=== PATIENT | female | born 1985 | race Caucasian/White ===

== ENCOUNTER 2019-01-16 22:57 | Emergency (ER) | payer OTHER ==
[2019-01-16] MEDS ORDERED: SOLU-Medrol IV ONE (23:13)
[2019-01-16] MEDS ORDERED: PEPCID IV ONE (23:13)
[2019-01-16 23:38] LABS: Basophils % (Auto) 0.4 % (0.0-1.8); Eosinophils # (Auto) 0.1 K/mm3 (0.0-0.4); Eosinophils % (Auto) 1.8 % (0.0-4.3); Hematocrit 39.4 % (30.3-42.9); Hemoglobin 13.9 gm/dl (10.1-14.3); Lymphocytes # (Auto) 1.7 K/mm3 (1.2-5.4); Mean Corpuscular HGB Conc 35 % (30-34); Mean Corpuscular Volume 91 fl (79-97); Monocytes # (Auto) 0.4 K/mm3 (0.0-0.8); Monocytes % (Auto) 6.1 % (0.0-7.3); Platelet Count 211 K/mm3 (140-440); Red Blood Count 4.32 M/mm3 (3.65-5.03); Red Cell Distribution Width 13.1 % (13.2-15.2)
[2019-01-16 23:47] LABS: BUN/Creatinine Ratio 26; Blood Urea Nitrogen 18 mg/dL (7-17); Calcium 8.5 mg/dL (8.4-10.2); Hemolysis Index 4
[2019-01-17] MEDS ORDERED: LIDOCAINE VISCOUS 2% PO ONE (00:18)
[2019-01-17 01:10] VITALS: BP 125/91
--- NOTE | 2019-01-17 01:19 | Emergency Department Report ---
ED Fever HPI - General Chief Complaint: Allergic Reaction Stated Complaint: ALLERGIC REACTION Time Seen by Provider: 01/16/19 23:12 - History of Present Illness Initial Comments: Patient is a 33-year-old femalepast medical history who presents with reaction. Patient states that she came in contact with avocado and then she started breaking up and I asked him feeling some pain in her throat. Patient's pain is mild swallowing makes it worse nothing makes it better. Patient states that she's had similar reactions in the past to avocado. She took 2 Benadryl about 30 minutes prior to coming into the emergency department. ED Review of Systems ROS: Stated complaint: ALLERGIC REACTION Other details as noted in HPI Constitutional: denies: chills, fever Eyes: denies: eye pain, eye discharge, vision change ENT: denies: ear pain, throat pain Respiratory: denies: cough, shortness of breath, wheezing Cardiovascular: denies: chest pain, palpitations Endocrine: no symptoms reported Gastrointestinal: denies: abdominal pain, nausea, diarrhea Genitourinary: denies: urgency, dysuria, discharge Musculoskeletal: denies: back pain, joint swelling, arthralgia Skin: rash. denies: lesions Neurological: denies: headache, weakness, paresthesias Psychiatric: denies: anxiety, depression Hematological/Lymphatic: denies: easy bleeding, easy bruising ED Past Medical Hx - Past Medical History Previous Medical History?: No - Surgical History Past Surgical History?: Yes Hx Breast Surgery: Yes (2 breast augmentations) Additional Surgical History: lymph node removed from left abdominal area 5 years ago - Social History Smoking Status: Current Every Day Smoker Substance Use Type: Alcohol - Medications Home Medications: Home Medications Medication Instructions Recorded Confirmed Last Taken Type Famotidine [Pepcid] 20 mg PO BID #20 tablet 01/17/19 Unknown Rx diphenhydrAMINE [Benadryl CAP] 25 mg PO Q6HR PRN #30 capsule 01/17/19 Unknown Rx predniSONE [Deltasone] 20 mg PO BID #10 tab 01/17/19 Unknown Rx ED Physical Exam - General Limitations: No Limitations General appearance: alert, in no apparent distress - Head Head exam: Present: atraumatic, normocephalic - Eye Eye exam: Present: normal appearance - ENT ENT exam: Present: mucous membranes moist - Neck Neck exam: Present: normal inspection - Respiratory Respiratory exam: Present: normal lung sounds bilaterally. Absent: respiratory distress - Cardiovascular Cardiovascular Exam: Present: regular rate, normal rhythm. Absent: systolic murmur, diastolic murmur, rubs, gallop - GI/Abdominal GI/Abdominal exam: Present: soft, normal bowel sounds - Extremities Exam Extremities exam: Present: normal inspection - Back Exam Back exam: Present: normal inspection - Neurological Exam Neurological exam: Present: alert, oriented X3 - Psychiatric Psychiatric exam: Present: normal affect, normal mood - Skin Skin exam: Present: warm, dry, intact, normal color. Absent: rash ED Course Vital Signs 01/16/19 01/16/19 01/16/19 23:02 23:12 23:16 Temperature 97.8 F 98 F Pulse Rate 83 79 82 Respiratory 18 18 19 Rate Blood Pressure 125/91 137/69 Blood Pressure 137/69 [Left] O2 Sat by Pulse 98 98 99 Oximetry 01/16/19 01/17/19 01/17/19 23:46 00:00 00:16 Temperature Pulse Rate 87 82 79 Respiratory 16 13 Rate Blood Pressure 115/85 115/85 130/85 Blood Pressure [Left] O2 Sat by Pulse 97 99 99 Oximetry 01/17/19 01/17/19 00:30 01:00 Temperature Pulse Rate 85 79 Respiratory 14 24 Rate Blood Pressure 130/85 125/91 Blood Pressure [Left] O2 Sat by Pulse 99 Oximetry ED Medical Decision Making - Lab Data Result diagrams: 01/16/19 23:21 01/16/19 23:21 Lab Results 01/16/19 01/16/19 Range/Units 23:21 23:21 WBC 7.1 (4.5-11.0) K/mm3 RBC 4.32 (3.65-5.03) M/mm3 Hgb 13.9 (10.1-14.3) gm/dl Hct 39.4 (30.3-42.9) % MCV 91 (79-97) fl MCH 32 (28-32) pg MCHC 35 H (30-34) % RDW 13.1 L (13.2-15.2) % Plt Count 211 (140-440) K/mm3 Lymph % (Auto) 24.0 (13.4-35.0) % Garrard % (Auto) 6.1 (0.0-7.3) % Eos % (Auto) 1.8 (0.0-4.3) % Baso % (Auto) 0.4 (0.0-1.8) % Lymph # 1.7 (1.2-5.4) K/mm3 Garrard # 0.4 (0.0-0.8) K/mm3 Eos # 0.1 (0.0-0.4) K/mm3 Baso # 0.0 (0.0-0.1) K/mm3 Seg Neutrophils % 67.7 (40.0-70.0) % Seg Neutrophils # 4.8 (1.8-7.7) K/mm3 Sodium 142 (137-145) mmol/L Potassium 4.1 (3.6-5.0) mmol/L Chloride 107.8 H (98-107) mmol/L Carbon Dioxide 24 (22-30) mmol/L Anion Gap 14 mmol/L BUN 18 H (7-17) mg/dL Creatinine 0.7 (0.7-1.2) mg/dL Estimated GFR > 60 ml/min BUN/Creatinine Ratio 26 % Glucose 90 (65-100) mg/dL Calcium 8.5 (8.4-10.2) mg/dL - EKG Data -: EKG Interpreted by Me - Medical Decision Making Cdx: Allergic reaction secondary to avacado ddx: Anaphalctoid reaction, electrolyte abnormality I will get cbc, bmp, IV bendaryl , IV pepcid and IV steroids Patient is feeling better I will discharge patient home. Critical care attestation.: If time is entered above; I have spent that time in minutes in the direct care of this critically ill patient, excluding procedure time. ED Disposition Clinical Impression: Throat pain Allergic reaction Qualifiers: Encounter type: initial encounter Qualified Code(s): T78.40XA - Allergy, unspecified, initial encounter Disposition: DC- TO HOME OR SELFCARE Is pt being admited?: No Does the pt Need Aspirin: No Condition: Stable Instructions: Anaphylaxis (ED) Prescriptions: diphenhydrAMINE [Benadryl CAP] 25 mg PO Q6HR PRN #30 capsule PRN Reason: Allergy Symptoms Famotidine [Pepcid] 20 mg PO BID #20 tablet predniSONE [Deltasone] 20 mg PO BID #10 tab Referrals: BARBARA CLEVELAND MD [Primary Care Provider] - 3-5 Days
== END 2019-01-17 01:44 | disposition home or self-care (01) ==
LOC: ED 22:57
DX: T78.40XA Allergy, unspecified, initial encounter (principal); R07.0 Pain in throat; F17.200 Nicotine dependence, unspecified, uncomplicated; Z91.018 Allergy to other foods
CPT/HCPCS: 36415; 80048; 85025; 96374; 96375; 99284; J2930

== ENCOUNTER 2019-01-19 22:10 | Emergency (ER) | payer OTHER ==
--- NOTE | 2019-01-19 23:41 | Emergency Department Report ---
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 Pt states she was evaluated in the ED on 01/17/19 for an allergic reaction after she came into contact with avocado oil. The patient was treated in the ED and discharged home. She states she would like an epi pen in case she comes into contact with avocado oil again. She currently denies any rash, itching, SOB, cough, throat pain, throat swelling, or any symptoms at all. Severity scale (0 -10): 0 - Related Data Previous Rx's Medication Instructions Recorded Last Taken Type Famotidine [Pepcid] 20 mg PO BID #20 tablet 01/17/19 Unknown Rx diphenhydrAMINE [Benadryl CAP] 25 mg PO Q6HR PRN #30 capsule 01/17/19 Unknown Rx predniSONE [Deltasone] 20 mg PO BID #10 tab 01/17/19 Unknown Rx EPINEPHrine [Epipen] 0.3 mg IJ ONCE PRN #1 auto.injct 01/19/19 Unknown Rx Allergies Allergy/AdvReac Type Severity Reaction Status Date / Time avacodo Allergy Swelling Uncoded 01/16/19 23:01 ED Review of Systems ROS: Stated complaint: NEEDS EPIPEN RX Other details as noted in HPI Comment: All other systems reviewed and negative ED Past Medical Hx - Past Medical History Previous Medical History?: No - Surgical History Hx Breast Surgery: Yes (2 breast augmentations) Additional Surgical History: lymph node removed from left abdominal area 5 years ago - Social History Smoking Status: Never Smoker Substance Use Type: None - Medications Home Medications: Home Medications Medication Instructions Recorded Confirmed Last Taken Type Famotidine [Pepcid] 20 mg PO BID #20 tablet 01/17/19 Unknown Rx diphenhydrAMINE [Benadryl CAP] 25 mg PO Q6HR PRN #30 capsule 01/17/19 Unknown Rx predniSONE [Deltasone] 20 mg PO BID #10 tab 01/17/19 Unknown Rx EPINEPHrine [Epipen] 0.3 mg IJ ONCE PRN #1 auto.injct 01/19/19 Unknown Rx ED Physical Exam - General Limitations: No Limitations General appearance: alert, in no apparent distress - Head Head exam: Present: atraumatic, normocephalic - Eye Eye exam: Present: normal appearance - ENT ENT exam: Present: mucous membranes moist - Respiratory Respiratory exam: Absent: respiratory distress - Cardiovascular Cardiovascular Exam: Present: regular rate - Neurological Exam Neurological exam: Present: alert, oriented X3 - Skin Skin exam: Present: warm, dry, intact. Absent: rash, erythema, urticaria ED Course Vital Signs 01/19/19 22:32 Temperature 98 F Pulse Rate 89 Respiratory 18 Rate Blood Pressure 134/91 O2 Sat by Pulse 98 Oximetry ED Medical Decision Making - Medical Decision Making pt with hx of allergy to avocado oil. She comes in to ED for prescription for EPI pen. Pt would like to have an EPI pen in case of further interactions that may occur with the avocado oil. Discussed risk and benefits of epi pen. Explained to pt if she uses the EPI pen then to be immediately seen in an emergency department. Advised to return to ED for any further reactions. Follow up with PCP in the next couple of days. Critical care attestation.: If time is entered above; I have spent that time in minutes in the direct care of this critically ill patient, excluding procedure time. ED Disposition Clinical Impression: Medicine refill Allergic reaction Qualifiers: Encounter type: subsequent encounter Qualified Code(s): T78.40XD - Allergy, unspecified, subsequent encounter Disposition: DC-01 TO HOME OR SELFCARE Is pt being admited?: No Does the pt Need Aspirin: No Condition: Stable Instructions: Epinephrine (Injection), Allergies (ED), Anaphylaxis (ED), Urticaria (ED) Additional Instructions: Follow up with primary care doctor in the next couple of days. If you have to use EPIpen immediately be seen in the emergency department. Return to ED for any signs of allergic reaction. Prescriptions: EPINEPHrine [Epipen] 0.3 mg IJ ONCE PRN #1 auto.injct PRN Reason: Allergic Reaction Referrals: PRIMARY CARE,MD [Primary Care Provider] - 3-5 Days Time of Disposition: 23:45 Print Language: THAI
== END 2019-01-19 23:50 | disposition home or self-care (01) ==
LOC: ED 22:10
CPT/HCPCS: 99282